=== PATIENT | female | born 1990 ===

== ENCOUNTER 2017-07-18 14:00 | Emergency (ER) | payer OTHER ==
[2017-07-18 14:13] VITALS: TEMP 98.8
--- NOTE | 2017-07-18 14:23 | ED PDOC ---
HPI: SOB/CHF/COPD Time Seen by Provider: 07/18/17 14:12 Chief Complaint (Nursing): Chest Pain History Per: Patient Onset/Duration Of Symptoms: Days (4) Quality: Tightness Exacerbating Factor(s): Coughing Severity: Mild Pain Scale Rating Of: 1 Associated Symptoms: Productive Cough. denies: Fever Additional Complaint(s): Cough productive green sputum assoc with SOB and chest tightness x 3-4 days. Denies fever. Past Medical History Vital Signs: Last Vital Signs Temp 98.8 F 07/18/17 14:08 Pulse 94 H 07/18/17 14:08 Resp 16 07/18/17 14:08 BP 131/75 07/18/17 14:08 Pulse Ox 97 07/18/17 14:23 - Medical History PMH: No Chronic Diseases - Family History Family History: States: Unknown Family Hx - Home Medications Home Medications: Ambulatory Orders Medication Instructions Recorded Albuterol HFA [Ventolin HFA 90 2 puff IH Q4H #1 puff 07/18/17 mcg/actuation (8 g)] Azithromycin [Zithromax] 250 mg PO DAILY #6 tab 07/18/17 - Allergies Allergies/Adverse Reactions: Allergies Allergy/AdvReac Type Severity Reaction Status Date / Time No Known Allergies Allergy Verified 07/18/17 14:13 Review of Systems ROS Statement: Except As Marked, All Systems Reviewed And Found Negative Constitutional: Negative for: Fever Respiratory: Positive for: Cough, Shortness of Breath, Wheezing Physical Exam - Reviewed Nursing Documentation Reviewed: Yes Vital Signs Reviewed: Yes - Physical Exam Appears: Positive for: Non-toxic, No Acute Distress Head Exam: Positive for: ATRAUMATIC, NORMAL INSPECTION, NORMOCEPHALIC Skin: Positive for: Normal Color, Warm, DRY Eye Exam: Positive for: EOMI, Normal appearance, PERRL ENT: Positive for: Normal ENT Inspection Neck: Positive for: Normal, Painless ROM Cardiovascular/Chest: Positive for: Regular Rate, Rhythm Respiratory: Positive for: Rhonchi, Wheezing. Negative for: Accessory Muscle Use, Respiratory Distress Gastrointestinal/Abdominal: Positive for: Normal Exam, Bowel Sounds, Soft Back: Positive for: Normal Inspection Extremity: Positive for: Normal ROM Neurologic/Psych: Positive for: Alert, Oriented - ECG O2 Sat by Pulse Oximetry: 97 - Progress Re-evaluation Time: 15:36 Condition: Improved Disposition - Clinical Impression Clinical Impression: Bronchitis - Patient ED Disposition Is Patient to be Admitted: No Counseled Patient/Family Regarding: Studies Performed, Diagnosis, Need For Followup, Rx Given - Disposition [facility] Disposition: Routine/Home Disposition Time: 15:37 Condition: FAIR Prescriptions: Albuterol HFA [Ventolin HFA 90 mcg/actuation (8 g)] 2 puff IH Q4H #1 puff Azithromycin [Zithromax] 250 mg PO DAILY #6 tab Instructions: Acute Bronchitis (ED), Bronchospasm (ED) Forms: [employer] (Icelandic) Print Language: MACEDONIAN
[2017-07-18] MEDS: Albuterol-Ipratrop 3 mg / 0.5 (3 ml) UD IH STA ×2 (14:25→15:00)
--- NOTE | 2017-07-18 15:42 | RAD ---
HISTORY: cough COMPARISON: No prior. TECHNIQUE: Chest PA and lateral FINDINGS: LUNGS: Poor inspiration with low lung volumes, minor crowded bronchovascular markings and minimal bibasilar atelectasis. PLEURA: No significant pleural effusion identified. No pneumothorax apparent. CARDIOVASCULAR: Normal. OSSEOUS STRUCTURES: No significant abnormalities. VISUALIZED UPPER ABDOMEN: Normal. OTHER FINDINGS: None. IMPRESSION: Poor inspiration with low lung volumes, minor crowded bronchovascular markings and minimal bibasilar atelectasis.
[2017-07-18 16:39] VITALS: BP 128/77; PULSE 88; RESP 14; O2SAT 100
== END 2017-07-18 16:38 | disposition home or self-care (01) ==
LOC: H.ER 14:00
DX: J20.9 Acute bronchitis, unspecified (principal)

== ENCOUNTER 2018-11-20 11:42 | Emergency (ER) | payer SELFPAY ==
[2018-11-20] MEDS ORDERED: Albuterol-Ipratrop 3 mg / 0.5 (3 ml) UD INH STA (12:58)
--- NOTE | 2018-11-20 13:32 | ED PDOC ---
HPI: Asthma Time Seen by Provider: 11/20/18 12:34 Chief Complaint (Nursing): Cough, Cold, Congestion Chief Complaint (Provider): Cough and wheezing History Per: Patient History/Exam Limitations: no limitations Onset/Duration Of Symptoms: Other (x1 month) Current Symptoms Are (Timing): Still Present Additional Complaint(s): 28 year old female presents to the ED complaining of cough associated with wheezing, intermittent chest tightness, and nasal congestion. Denies fever. Patient reports he has had some days when she felt better but cough and wheezing returns. Patient was treated before for asthmatic bronchitis and had an inhaler. She does not have any medications at home. PMD: none Past Medical History Reviewed: Historical Data, Nursing Documentation, Vital Signs Vital Signs: Last Vital Signs Temp 97.3 F L 11/20/18 12:05 Pulse 93 H 11/20/18 12:05 Resp 17 11/20/18 12:05 BP 121/77 11/20/18 12:05 Pulse Ox 95 11/20/18 12:05 - Medical History PMH: Bronchitis - Surgical History Surgical History: No Surg Hx - Family History Family History: States: Unknown Family Hx - Immunization History Hx Tetanus Toxoid Vaccination: No Hx Influenza Vaccination: No Hx Pneumococcal Vaccination: No - Home Medications Home Medications: Ambulatory Orders Medication Instructions Recorded Azithromycin [Zithromax] 250 mg PO DAILY #6 tab 07/18/17 RX: Albuterol HFA [Ventolin HFA 90 2 puff IH Q4H #1 puff 07/18/17 mcg/actuation (8 g)] Azithromycin [Zithromax] 250 mg PO DAILY #6 tab 11/20/18 RX: Albuterol HFA [Ventolin HFA 90 2 puff IH [id number] #1 puff 11/20/18 mcg/actuation (8 g)] predniSONE [Prednisone] 20 mg PO DAILY #12 tab 11/20/18 - Allergies Allergies/Adverse Reactions: Allergies Allergy/AdvReac Type Severity Reaction Status Date / Time No Known Allergies Allergy Verified 11/20/18 12:05 Review of Systems ROS Statement: Except As Marked, All Systems Reviewed And Found Negative Constitutional: Negative for: Fever ENT: Positive for: Nose Congestion Cardiovascular: Positive for: Chest Pain (Chest tightness) Respiratory: Positive for: Cough, Wheezing Physical Exam - Reviewed Nursing Documentation Reviewed: Yes Vital Signs Reviewed: Yes - Physical Exam Appears: Positive for: Non-toxic, No Acute Distress Head Exam: Positive for: ATRAUMATIC, NORMOCEPHALIC Skin: Positive for: Normal Color, Warm, Dry Eye Exam: Positive for: Normal appearance ENT: Positive for: Nasal Congestion Neck: Positive for: Normal, Painless ROM Cardiovascular/Chest: Positive for: Regular Rate, Rhythm. Negative for: Murmur Respiratory: Positive for: Wheezing (diffuse bilateral wheezing) Extremity: Positive for: Normal ROM Neurologic/Psych: Positive for: Alert, Oriented. Negative for: Motor/Sensory Deficits - ECG O2 Sat by Pulse Oximetry: 95 (RA) Pulse Ox Interpretation: Normal Medical Decision Making Medical Decision Making: Initial Plan: --ED urine --Chest X-ray --Albuterol 3mL INH --Prednisone 60mg PO --Peak flow 18:03 X-ray showed haziness to the left lower lobe. 3 duonebs and prednisone given to patient and states she is feeling much better. Repeat exam, mild persistent wheeze but is talking comfortably with no distress. Repeat pulse ox of 99, HR 85. Patient is feeling much better and will discharge with prescriptions for Zithromax, Prednisone, and Albuterol. Scribe Attestation: Documented by Ze Louie acting as a scribe for Rebecca SULLIVAN. Provider Scribe Attestation: All medical record entries made by the Scribe were at my direction and personally dictated by me. I have reviewed the chart and agree that the record accurately reflects my personal performance of the history, physical exam, medical decision making, and the department course for this patient. I have also personally directed, reviewed, and agree with the discharge instructions and disposition. Disposition - Clinical Impression Clinical Impression: Asthmatic bronchitis - Disposition Referrals: [facility] [Outside] Disposition Time: 20:12 Condition: STABLE Prescriptions: RX: Albuterol HFA [Ventolin HFA 90 mcg/actuation (8 g)] 2 puff IH [id number] #1 puff Azithromycin [Zithromax] 250 mg PO DAILY #6 tab predniSONE [Prednisone] 20 mg PO DAILY #12 tab Instructions: Asthma in Adults, Acute Bronchitis, How to Use Your Metered Dose Inhaler (Adults) Forms: [employer] (Luxembourgish) Print Language: ITALIAN
[2018-11-20] MEDS ORDERED: Albuterol-Ipratrop 3 mg / 0.5 (3 ml) UD ONE ×2 (15:24→15:25)
--- NOTE | 2018-11-20 16:57 | RAD ---
Date of service: 11/20/2018 HISTORY: Cough COMPARISON: 07/18/2017. TECHNIQUE: Chest PA and lateral FINDINGS: LINES AND TUBES: None. LUNG AND PLEURA: The lungs are well inflated and clear. No pleural effusion or pneumothorax. HEART AND MEDIASTINUM: The heart is not enlarged. No aortic atherosclerotic calcification present. The hilar and mediastinal contours are within normal limits. SKELETAL STRUCTURES: The bony structures are within normal limits for the patient's age. VISUALIZED UPPER ABDOMEN: Normal. OTHER FINDINGS: None. IMPRESSION: No active pulmonary disease.
[2018-11-20 19:00] VITALS: BP 119/68; PULSE 85; RESP 18; TEMP 98
[2018-11-21 00:13] VITALS: O2SAT 95
== END 2018-11-20 18:59 | disposition home or self-care (01) ==
LOC: H.ER 11:42
DX: J45.909 Unspecified asthma, uncomplicated (principal); R07.89 Other chest pain; Z79.899 Other long term (current) drug therapy